=== PATIENT | female | born 1955 | race African-American/Black ===

== ENCOUNTER → 2016-05-24 | Outpatient (CLI) | payer MEDICARE ==
[2016-05-20 19:30] VITALS: BP 189/107
[~2016-05-24] VITALS: Ht 172.7 cm; Wt 102.1 kg
[~2016-05-24] MED LIST: DICL100G7 TP; DICY20TA3 PO; ERGO500012 PO; FLUT16SP NS; GABA-586 PO; HYDR-971 PO; HYDR30CR TP; LORA0.5T PO; LORA10TA3 PO; METH10TA2 PO; NAPR500T3 PO; OLME20TA PO; OMEP20TA PO; OMEP40CA5 PO; ONDA-35 PO; POTA20TA4 PO; SERT100T8 PO; SIMV20TA3 PO; SINCALIDE 2 MCG in IV NORMAL SALINE 50ML 30 ML IV ONE; TRAZ100T12 PO; TRET1COM3 TP; benicar; seroquel
--- NOTE | 2016-05-24 09:11 | RAD ---
Indication:Epigastric pain Grayscale images of the abdomen were obtained. Comparison none Liver:There is increased attenuation of the ultrasound beam by the liver compatible with fatty infiltration. A focal mass lesion in the visualized liver is not seen Gallbladder:Normal. The common bile duct diameter of approximately 5 mm is normal Spleen:Normal Pancreas:Poorly visualized and largely obscured by gas Kidneys:Normal Abdominal aorta and IVC:Similar to the pancreas largely obscured Ancillary findings:None Impression:Fatty infiltration of the liver. No acute or definite significant finding seen. Midline structures obscured
--- NOTE | 2016-05-24 10:45 | RAD ---
Indication epigastric pain. Chronic. 5.5 mCi of technetium labeled Choletec was administered. 2 mcg of CCK was diluted in saline and administered over several minutes. Following the CCK administration a gallbladder ejection fraction calculation was made. There is normal uptake of the radiopharmaceutical in the liver. Activity is seen early within the gallbladder and small bowel. Following the CCK administration the estimated gallbladder ejection fraction approaches 90%. IMPRESSION: Normal study
== END | disposition home or self-care (01) ==
LOC: US 07:28
PROVIDERS: ATTEND Internal Medicine Gastroenterology
DX: K76.0 Fatty (change of) liver, not elsewhere classified (principal)
CPT/HCPCS: 76700; 78226; 96374; 96375; A9537; J2805

== ENCOUNTER → 2016-05-29 | Outpatient (CLI) | payer MEDICARE ==
[2016-05-20 19:30] VITALS: BP 189/107
[~2016-05-29] MED LIST changes: -SINCALIDE 2 MCG in IV NORMAL SALINE 50ML 30 ML IV ONE
--- NOTE | 2016-05-29 10:09 | RAD ---
Radionuclide gastric imaging study, 05/29/2016: History: Abdominal pain The study was performed utilizing a solid test meal radiolabeled with 2.1 mCi of technetium 99m sulfur colloid. The time to half emptying of the test meal from the patient's stomach was estimated at 206 minutes. A normal T1/2 is 60 minutes +/- 30 minutes. IMPRESSION: Moderately delayed gastric emptying
== END | disposition home or self-care (01) ==
LOC: NM 07:08
PROVIDERS: ATTEND Internal Medicine Gastroenterology
DX: K30 Functional dyspepsia (principal)
CPT/HCPCS: 78264; A9541

== ENCOUNTER → 2016-05-31 | Day surgery (SDC) | payer MEDICARE ==
[~2016-05-31] MED LIST changes: +IV RINGERS,LACTATED 1000ML 1,000 ML IV SCH; +LIDOCAINE 2% PF Vial for OR 5 ML VIAL. ONE; +PROPOFOL 20 ML IV ONE
[2016-05-31 14:22] VITALS: BP 141/69
== END | disposition home or self-care (01) ==
LOC: ENDOS 12:56
PROVIDERS: ATTEND Internal Medicine Gastroenterology
DX: K29.70 Gastritis, unspecified, without bleeding (principal); I10 Essential (primary) hypertension; F32.9 Major depressive disorder, single episode, unspecified; F10.21 Alcohol dependence, in remission; Z87.39 Personal history of other diseases of the musculoskeletal system and connective tissue; Z90.12 Acquired absence of left breast and nipple; Z83.3 Family history of diabetes mellitus; Z85.3 Personal history of malignant neoplasm of breast; Z87.891 Personal history of nicotine dependence
CPT/HCPCS: 43235; J2704

== ENCOUNTER → 2016-06-12 | Outpatient (CLI) | payer MEDICARE ==
[2016-05-31 14:22] VITALS: BP 141/69
[~2016-06-12] MED LIST changes: +IOHEXOL 240 MG/ML 50ML VIAL. PO ONE; +IOHEXOL 300 MG/ML 75 ML VIAL IV ONE; -IV RINGERS,LACTATED 1000ML 1,000 ML IV SCH; -LIDOCAINE 2% PF Vial for OR 5 ML VIAL. ONE; -PROPOFOL 20 ML IV ONE
--- NOTE | 2016-06-12 13:29 | RAD ---
CT of the chest, abdomen and pelvis with contrast, 06/12/2016: History: Staging breast cancer Multidetector CT imaging was performed following oral and IV administration of contrast. No previous studies are available at this time for comparison purposes. There has been a previous left mastectomy. Bilateral breast implants are in place. No axillary adenopathy is evident. The thoracic aorta is of normal caliber. No mediastinal or hilar adenopathy is seen. There are minimal subpleural opacities in the anterior aspect of the left chest compatible with scarring in this patient with a history of radiation therapy. No pulmonary mass or significant infiltrate is seen. There is no evidence of pleural fluid. The liver is unremarkable. No gallbladder abnormality is seen. The pancreas shows no abnormality. The spleen is of normal size. Two small perisplenic densities are compatible with accessory splenic tissue. There is a 1.4 cm cyst in the upper pole of the right kidney. The kidneys are otherwise unremarkable. There is a 2.6 cm low density right adrenal mass. It demonstrates an internal CT number of approximately 10 Hounsfield units compatible with a cyst or benign adenoma. The left adrenal gland is unremarkable. The abdominal aorta is unremarkable. No abdominal or pelvic adenopathy is seen. The bowel loops are unremarkable. No free fluid is evident in the abdomen or pelvis. There are mild scattered degenerative changes in the spine. A small dense sclerotic focus in the right iliac bone is probably a bone island. IMPRESSION: 1. No specific CT evidence of metastatic disease in the chest, abdomen or pelvis. 2. Small low density right adrenal nodule which is probably a benign adenoma or cyst. 3. A small sclerotic focus in the right iliac bone is probably a bone island. PQRS Compliance Statement: One or more of the following individualized dose reduction techniques were utilized for this examination: 1. Automated exposure control 2. Adjustment of the mA and/or kV according to patient size 3. Use of iterative reconstruction technique
--- NOTE | 2016-06-12 14:53 | RAD ---
Radionuclide bone scan, 06/12/2016: History: Breast cancer Whole body imaging was performed following an IV injection of 26.4 mCi of technetium 99m MDP. No previous bone scan is available for correlative purposes. The following findings are delineated: 1. There is mildly increased activity in both patellar regions and at the right first MTP joint level, presumably arthritic in nature. 2. There is no abnormal activity in the right pelvis at the level of the sclerotic density seen on the recent CT study. This is presumably a benign bone island. 3. Minimally increased activity in the right maxillary region is likely due to dental disease. 4. Activity of the radionuclide about the skeleton major joints is otherwise fairly symmetric. 5. Normal activity is present in both kidneys and the bladder. IMPRESSION: There is no convincing evidence of osseous metastatic disease.
== END | disposition home or self-care (01) ==
LOC: NM 13:29
PROVIDERS: ATTEND Internal Medicine Hematology & Oncology
DX: C50.912 Malignant neoplasm of unspecified site of left female breast (principal); I10 Essential (primary) hypertension; Z87.891 Personal history of nicotine dependence
CPT/HCPCS: 71260; 74177; 78306; 96374; A9503; Q9966; Q9967

== ENCOUNTER → 2016-09-27 | Outpatient (CLI) | payer MEDICARE ==
[2016-05-31 14:22] VITALS: BP 141/69
[~2016-09-27] MED LIST changes: +DICL100G18 TP; -DICL100G7 TP; -ERGO500012 PO; +ERGO500027 PO; -IOHEXOL 240 MG/ML 50ML VIAL. PO ONE; -IOHEXOL 300 MG/ML 75 ML VIAL IV ONE; -OLME20TA PO; +OLME20TA19 PO; -OMEP20TA PO; +OMEP20TA8 PO; -ONDA-35 PO; +ONDA4TAB11 PO
--- NOTE | 2016-09-27 15:57 | RAD ---
DATE: 09/17/2016 EXAM: DIGITAL SCREEN RT W/CAD HISTORY: Screening study. History of left mastectomy for breast cancer. COMPARISON: 09/13/2015 This study was interpreted with the benefit of Computerized Aided Detection (CAD). FINDINGS: Digital MLO and CC mammograms of the right breast were obtained. Additionally implant displacement MLO and CC digital mammograms of the right breast were obtained. Comparison study is dated 09/13/2015. A subpectoral breast implant is again noted. The right breast parenchyma is composed of scattered fibroglandular densities which can obscure a lesion on mammography (breast density code B). No spiculated mass is seen. No malignant appearing calcification or area of architectural distortion is noted. Benign-appearing calcifications are seen involving the right breast. Since the previous examination there has been no significant interval change. IMPRESSION: BI-RADS Category 2 benign findings. There is no mammographic evidence of malignancy. Routine yearly screening mammography is recommended for follow-up. BI-RADS CATEGORY: 2 BENIGN FINDING(S) RECOMMENDED FOLLOW-UP: 12M 12 MONTH FOLLOW-UP PQRS compliance statement: Patient information was entered into a reminder system with a target due date 09/27/2017 for the next mammogram. Mammography is a sensitive method for finding small breast cancers, but it does not detect them all and is not a substitute for careful clinical examination. A negative mammogram does not negate a clinically suspicious finding and should not result in delay in biopsying a clinically suspicious abnormality. "Our facility is accredited by the [employer] Mammography Program."
== END | disposition home or self-care (01) ==
LOC: MAMMO 14:53
PROVIDERS: ATTEND Internal Medicine Hematology & Oncology
DX: Z12.31 Encounter for screening mammogram for malignant neoplasm of breast (principal)
CPT/HCPCS: G0202; 77067